=== PATIENT | male | born 1960 | race Caucasian/White ===

== ENCOUNTER → 2017-05-14 | Day surgery (SDC) | payer OTHER ==
[2014-04-17 14:10] VITALS: BP 149/88
[~2017-05-14] MED LIST: IBUPROFEN200 M1 PO
== END ==
LOC: MSO 07:27
DX: Z12.11 Encounter for screening for malignant neoplasm of colon (principal); Z88.0 Allergy status to penicillin
CPT/HCPCS: 00812; J2704; J3010; J7120

== ENCOUNTER → 2017-08-06 | Outpatient (CLI) | payer OTHER ==
[~2017-08-06] VITALS: Ht 175.3 cm; Wt 84.5 kg
[2017-08-06 13:15] LABS: EOS # 0.1 (0.04-0.40); HEMATOCRIT 47.8 % (42.0-52.0); HEMOGLOBIN 16.3 g/dL (13.5-18.0); LYMPH# 1.3 (1.50-4.00); MEAN CELL VOLUME 84 fl (78-100); MEAN CORPUSCULAR HEMOGLOBIN 29 pg (27-31); MEAN CORPUSCULAR HGB CONC 34 g/dL (33-37); MEAN PLATELET VOLUME 10.5 fl (7.4-10.4); MONO # 0.8 (0.20-0.80); NEU # 6.2 (1.40-6.50); PLATELET COUNT 204 K/mm3 (130-400); RED BLOOD COUNT 5.67 M/mm3 (4.20-5.60); RED CELL DISTRIBUTION WIDTH 12.8 % (11.5-14.5); WHITE BLOOD COUNT 8.3 K/mm3 (4.8-10.8)
[2017-08-06 13:28] VITALS: BP 139/79
[2017-08-06 13:29] LABS: ALBUMIN 4.2 g/dL (3.5-5.0); BUN/CREATININE RATIO 13.7 (6.0-26.0); CALCIUM 8.8 mg/dL (8.4-10.2); POTASSIUM 4.4 mmol/L (3.6-5.0); TOTAL BILIRUBIN 0.7 mg/dL (0.2-1.3); TOTAL PROTEIN 7.5 g/dL (6.3-8.2)
[2017-08-06 13:43] LABS: URINE APPEARANCE CLEAR; URINE BILIRUBIN NEGATIVE (NEGATIVE); URINE BLOOD NEGATIVE (NEGATIVE); URINE COLOR YELLOW; URINE GLUCOSE NEGATIVE (NEGATIVE); URINE KETONE NEGATIVE (NEGATIVE); URINE LEUKOCYTE ESTERASE NEGATIVE (NEGATIVE); URINE MUCUS PRESENT (NOT PRESENT); URINE NITRATE NEGATIVE (NEGATIVE); URINE PROTEIN(semi-quant) TRACE mg/dL (NEGATIVE); URINE UROBILINOGEN NORMAL (NORMAL)
== END ==
LOC: LAB 13:02 → AMSURD 13:02
PROVIDERS: Physician Assistant
DX: R42 Dizziness and giddiness (principal); R53.83 Other fatigue

== ENCOUNTER → 2018-02-18 | Outpatient (CLI) | payer OTHER ==
[2017-08-06 13:28] VITALS: BP 139/79
[2018-02-18 13:13] LABS: EOS # 0.1 (0.04-0.40); EOS % 0.8 % (0.0-4.0); HEMATOCRIT 46.8 % (42.0-52.0); HEMOGLOBIN 16.4 g/dL (13.5-18.0); LYMPH# 1.6 (1.50-4.00); MEAN CELL VOLUME 84 fl (78-100); MEAN CORPUSCULAR HEMOGLOBIN 29 pg (27-31); MEAN CORPUSCULAR HGB CONC 35 g/dL (33-37); MONO # 0.7 (0.20-0.80); NEU # 6.3 (1.40-6.50); PLATELET COUNT 228 K/mm3 (130-400); RED CELL DISTRIBUTION WIDTH 12.7 % (11.5-14.5); WHITE BLOOD COUNT 8.7 K/mm3 (4.8-10.8)
[2018-02-18 13:35] LABS: CALCIUM 9.5 mg/dL (8.4-10.2); POTASSIUM 4.5 mmol/L (3.6-5.0)
== END ==
LOC: LAB 12:54
PROVIDERS: Nurse Practitioner Primary Care
DX: B09 Unspecified viral infection characterized by skin and mucous membrane lesions (principal)

== ENCOUNTER → 2018-02-27 | Outpatient (CLI) | payer OTHER ==
[2017-08-06 13:28] VITALS: BP 139/79
== END ==
LOC: RAD 07:00
DX: M48.02 Spinal stenosis, cervical region (principal); M50.222 Other cervical disc displacement at C5-C6 level; M25.78 Osteophyte, vertebrae
CPT/HCPCS: A9585

== ENCOUNTER 2018-08-28 10:30 | Outpatient (RCR) | payer OTHER ==
[2018-05-08 17:10] VITALS: BP 159/86
[~2018-08-28 10:30] MED LIST changes: +FLOMAX0.4 MG PO; +NORCO 325 MG-51 TA1 PO
== END 2018-09-04 | disposition still patient (30) ==
LOC: PT
DX: M54.13 Radiculopathy, cervicothoracic region (principal)

== ENCOUNTER 2018-11-20 15:30 | Outpatient (RCR) | payer OTHER ==
[2018-05-08 17:10] VITALS: BP 159/86
== END 2018-12-04 ==
LOC: PT
DX: M54.13 Radiculopathy, cervicothoracic region (principal)

== ENCOUNTER 2019-09-18 13:45 | Outpatient (RCR) | payer OTHER ==
[2018-05-08 17:10] VITALS: BP 159/86
== END 2019-10-07 | disposition home or self-care (01) ==
LOC: PT
DX: M50.10 Cervical disc disorder with radiculopathy, unspecified cervical region (principal)

== ENCOUNTER 2019-11-27 15:30 | Outpatient (RCR) | payer OTHER ==
[2018-05-08 17:10] VITALS: BP 159/86
== END 2020-01-21 | disposition home or self-care (01) ==
LOC: PT
DX: M50.10 Cervical disc disorder with radiculopathy, unspecified cervical region (principal)

== ENCOUNTER 2020-06-24 14:38 | Outpatient (RCR) | payer OTHER ==
[2018-05-08 17:10] VITALS: BP 159/86
== END 2020-07-02 17:00 | disposition home or self-care (01) ==
LOC: PT 14:38
DX: R42 Dizziness and giddiness (principal)

== ENCOUNTER 2021-07-04 14:30 | Emergency (ER) | payer OTHER ==
[2021-07-04 14:49] LABS: URINE WBC 0 /hpf (0-3)
[2021-07-04 14:56] LABS: BASO # 0.04 K/mm3 (0.02-0.10); EOS % 1.2 % (0.0-4.0); HEMATOCRIT 45.8 % (42.0-52.0); HEMOGLOBIN 15.7 g/dL (13.5-18.0); LYMPH# 1.74 K/mm3 (1.50-4.00); MEAN CELL VOLUME 84 fl (78-100); MEAN CORPUSCULAR HEMOGLOBIN 29 pg (27-31); MEAN CORPUSCULAR HGB CONC 34 g/dL (33-37); MEAN PLATELET VOLUME 10.5 fl (7.4-10.4); MONO # 0.61 K/mm3 (0.20-0.80); NEU # 5.88 K/mm3 (1.40-6.50); PLATELET COUNT 221 K/mm3 (130-400); RED BLOOD COUNT 5.44 M/mm3 (4.20-5.60); RED CELL DISTRIBUTION WIDTH 12.1 % (11.5-14.5); WHITE BLOOD COUNT 8.4 K/mm3 (4.8-10.8)
[2021-07-04] MEDS ORDERED: SERTRALINE50 MG PO (15:00)
[2021-07-04] MEDS ORDERED: ATORVASTATIN CA40 MG PO (15:01)
[2021-07-04] MEDS ORDERED: DIOVAN 80MG80 MG PO (15:01)
[2021-07-04 15:05] LABS: ALBUMIN 4.4 g/dL (3.5-5.0)
[2021-07-04 15:07] LABS: CALCIUM 9.4 mg/dL (8.3-10.5)
[2021-07-04 15:08] LABS: TOTAL PROTEIN 7.2 g/dL (6.4-8.3)
[2021-07-04 15:10] LABS: TOTAL BILIRUBIN 0.7 mg/dL (0.2-1.2)
[2021-07-04 15:11] LABS: URINE APPEARANCE CLEAR; URINE BILIRUBIN NEGATIVE (NEGATIVE); URINE BLOOD NEGATIVE (NEGATIVE); URINE COLOR YELLOW; URINE GLUCOSE NEGATIVE (NEGATIVE); URINE KETONE NEGATIVE (NEGATIVE); URINE LEUKOCYTE ESTERASE NEGATIVE (NEGATIVE); URINE MUCUS PRESENT (NOT PRESENT); URINE NITRATE NEGATIVE (NEGATIVE); URINE PROTEIN(semi-quant) NEGATIVE (NEGATIVE); URINE UROBILINOGEN NORMAL (NORMAL)
[2021-07-04] MEDS ORDERED: CYCLOBENZAPRINE10 M1 PO (16:42)
[2021-07-04] MEDS ORDERED: NORCO 325 MG-51 TA1 PO (16:42)
[2021-07-04 16:50] VITALS: BP 158/94
== END 2021-07-04 16:48 | disposition home or self-care (01) ==
LOC: ED 14:30
PROVIDERS: Nurse Practitioner
DX: M54.50 Low back pain, unspecified (principal); G89.29 Other chronic pain; I10 Essential (primary) hypertension; Z88.0 Allergy status to penicillin; Z91.14 Patient's other noncompliance with medication regimen; Z87.39 Personal history of other diseases of the musculoskeletal system and connective tissue
CPT/HCPCS: J1885; J2270; J2405; J3360; J7030

== ENCOUNTER 2023-02-21 13:10 | Emergency (ER) | payer OTHER ==
[~2023-02-21] VITALS: Ht 177.8 cm; Wt 86.4 kg
[~2023-02-21 13:10] MED LIST changes: +ATORVASTATIN CA40 MG PO; +CYCLOBENZAPRINE10 M1 PO; +DIOVAN 80MG80 MG PO; +SERTRALINE50 MG PO
[2023-02-21 13:34] LABS: BASO # 0.02 K/mm3 (0.02-0.10); EOS # 0.06 K/mm3 (0.04-0.40); EOS % 0.6 % (0.0-4.0); HEMATOCRIT 45.8 % (42.0-52.0); LYMPH# 1.49 K/mm3 (1.50-4.00); MEAN CELL VOLUME 83 fl (78-100); MEAN CORPUSCULAR HEMOGLOBIN 29 pg (27-31); MEAN CORPUSCULAR HGB CONC 35 g/dL (33-37); MEAN PLATELET VOLUME 10.6 fl (7.4-10.4); MONO # 0.63 K/mm3 (0.20-0.80); NEU # 7.03 K/mm3 (1.40-6.50); PLATELET COUNT 209 K/mm3 (130-400); RED BLOOD COUNT 5.49 M/mm3 (4.20-5.60); RED CELL DISTRIBUTION WIDTH 11.8 % (11.5-14.5); WHITE BLOOD COUNT 9.2 K/mm3 (4.8-10.8)
[2023-02-21 13:43] LABS: URINE APPEARANCE CLEAR (CLEAR); URINE COLOR YELLOW (YELLOW)
[2023-02-21 13:44] LABS: PH-URINE 5.5 (5.0 - 8.0); URINE BILIRUBIN NEGATIVE (NEGATIVE); URINE BLOOD 2+ (NEGATIVE); URINE GLUCOSE NEGATIVE (NEGATIVE); URINE KETONE NEGATIVE (NEGATIVE); URINE LEUKOCYTE ESTERASE NEGATIVE (NEGATIVE); URINE NITRATE NEGATIVE (NEGATIVE); URINE PROTEIN(semi-quant) NEGATIVE (NEGATIVE)
[2023-02-21 13:45] LABS: URINE MUCUS PRESENT (NOT PRESENT)
[2023-02-21 13:47] LABS: CALCIUM 9.3 mg/dL (8.3-10.5)
[2023-02-21] MEDS ORDERED: KETOROLAC10 MG PO (14:56)
[2023-02-21] MEDS ORDERED: NORCO 325 MG-51 TA1 PO (14:56)
[2023-02-21] MEDS ORDERED: ZOFRAN ODT4 MG PO (14:56)
[2023-02-21 15:10] VITALS: BP 127/73
== END 2023-02-21 15:10 | disposition home or self-care (01) ==
LOC: ED 13:10
PROVIDERS: Nurse Practitioner
DX: N13.2 Hydronephrosis with renal and ureteral calculous obstruction (principal); Z98.890 Other specified postprocedural states
CPT/HCPCS: J1885; J2405; J7030